=== PATIENT | female | born 1950 | race Hispanic/Latino ===

== ENCOUNTER → 2020-11-05 | Outpatient (CLI) | payer MEDICARE | END | disposition home or self-care (01) | LOC: SHCH 09:47 | PROVIDERS: ATTEND Internal Medicine Cardiovascular Disease | DX: I35.1 Nonrheumatic aortic (valve) insufficiency (principal); I35.0 Nonrheumatic aortic (valve) stenosis; I10 Essential (primary) hypertension; E78.5 Hyperlipidemia, unspecified | CPT/HCPCS: 93306; 93356 ==

== ENCOUNTER → 2020-11-08 | Outpatient (CLI) | payer MEDICARE ==
[~2020-11-08] VITALS: Ht 154.9 cm; Wt 70.8 kg
[~2020-11-08] MED LIST: REGADENOSON 0.4 MG/5 ML PF SYG IVP SCH
== END | disposition home or self-care (01) ==
LOC: SHCH 08:14 → EDUNIT# 08:30
PROVIDERS: ATTEND Internal Medicine Cardiovascular Disease
DX: I25.10 Atherosclerotic heart disease of native coronary artery without angina pectoris (principal); I25.5 Ischemic cardiomyopathy
CPT/HCPCS: 78452; 93017; 96374; A9500 ×2; J2785

== ENCOUNTER 2021-04-02 08:02 | Day surgery (SDC) | payer MEDICARE ==
[2021-04-01 09:42] LABS: BASOPHILS % (AUTO) 0.6 % (0.0-5.0); EOSINOPHILS % (AUTO) 1.8 % (0.0-8.0); LYMPHOCYTES % (AUTO) 34.9 % (21.0-51.0); MEAN CORPUSCULAR HEMOGLOBIN 30.2 pg (27.0-33.0); MEAN CORPUSCULAR HGB CONC 33.4 g/dL (32.0-36.0); MEAN CORPUSCULAR VOLUME 90.3 fL (79-99); MONOCYTES % (AUTO) 6.8 % (3.0-13.0); NEUTROPHILS % (AUTO) 55.8 % (40.0-77.0); PLATELET COUNT (AUTO) 275 K/uL (130-400); RED BLOOD CELL COUNT(AUTO) 4.87 MIL/uL (4.00-5.50); RED CELL DISTRIBUTION WIDTH 12.6 % (11.0-15.5); WHITE BLOOD COUNT (AUTO) 7.1 K/uL (4.8-10.8)
[2021-04-01 09:46] LABS: APPEARANCE,URINE CLEAR (CLEAR); BILIRUBIN,URINE NEGATIVE (NEGATIVE); COLOR,URINE YELLOW (YELLOW); GLUCOSE, URINE (UA) NEGATIVE (NEGATIVE); KETONES,URINE NEGATIVE (NEGATIVE); LEUKOCYTE ESTERASE ,URINE NEGATIVE (NEGATIVE); NITRATE,URINE NEGATIVE (NEGATIVE); OCCULT BLOOD,URINE NEGATIVE (NEGATIVE); PROTEIN,URINE NEGATIVE (NEGATIVE)
[2021-04-01 09:55] LABS: PROTHROMBIN TIME 10.9 SEC (9.6-11.6)
[2021-04-01 09:56] LABS: PARTIAL THROMBOPLASTIN TIME 29.8 SEC (26.3-35.5)
[2021-04-01 10:06] LABS: CREATININE 0.7 mg/dL (0.5-1.5)
[2021-04-01 14:21] VITALS: BP 112/60
[2021-04-02] VITALS (9 sets, daily range): BP systolic 130–170; BP diastolic 53–79
[~2021-04-02] VITALS: Ht 157.5 cm; Wt 62.2 kg
[~2021-04-02 08:02] MED LIST changes: +0.9% NACL 500ML IV.SOLN 500 ML IV SCH; +ASPI-1005 PO; +ATOR10TA69 PO; +DILT120C92 PO; +ESOM40CA PO; +FENO50CA4 PO; +LISI20TA24 PO; +PARO40TA72 PO; -REGADENOSON 0.4 MG/5 ML PF SYG IVP SCH; +TRAZ-185 PO
[2021-04-02] MEDS ORDERED: 0.9%NACL 1000ML 1,000 ML IV ONE (08:36)
[2021-04-02] MEDS ORDERED: IOHEXOL-350 50ML VIAL IV ONE (09:44)
[2021-04-02] MEDS ORDERED: IOHEXOL 350 MG/ML 100ML INFUS..BTL IV ONE (09:44)
[2021-04-02] MEDS ORDERED: NITROGLYCERIN 2 MG VIAL IV ONE (09:44)
[2021-04-02] MEDS ORDERED: LIDOCAINE HCL 400MG/20ML VIAL ONE (09:44)
[2021-04-02] MEDS ORDERED: MIDAZOLAM HCL 1 MG/ML 2ML VIAL ONE (10:10)
[2021-04-02] MEDS ORDERED: ONDANSETRON 4MG INJ ONE (13:46)
[2021-04-02] MEDS ORDERED: ONDANSETRON 4MG INJ IVP SCH (14:00)
== END 2021-04-02 14:15 | disposition home or self-care (01) ==
LOC: DAH 08:02
PROVIDERS: ATTEND Internal Medicine Cardiovascular Disease
DX: I25.119 Atherosclerotic heart disease of native coronary artery with unspecified angina pectoris (principal); I35.0 Nonrheumatic aortic (valve) stenosis; I10 Essential (primary) hypertension; E78.5 Hyperlipidemia, unspecified; F17.210 Nicotine dependence, cigarettes, uncomplicated; Z79.01 Long term (current) use of anticoagulants; Z79.82 Long term (current) use of aspirin; Z98.890 Other specified postprocedural states; Z79.899 Other long term (current) drug therapy; Z82.49 Family history of ischemic heart disease and other diseases of the circulatory system; Z90.89 Acquired absence of other organs; Z72.89 Other problems related to lifestyle
CPT/HCPCS: 36415; 71045; 80048; 81003; 85025; 85610; 85730; 93005; 93458; A4215; A4216; A4221; A4222; A4223 ×3; A4606; A4663; C1760; C1769; C1894; J1644; J2250; J2405; J3490 ×2; J7030; Q9965; Q9967 ×2; 96374; 99156; 99157

== ENCOUNTER → 2024-06-20 | Outpatient (CLI) | payer MEDICARE ==
[~2024-06-20] MED LIST changes: -0.9% NACL 500ML IV.SOLN 500 ML IV SCH; +ALBUHFA IH; +BENZ-39 PO; +CLAR-44 PO; +DILT120C78 PO; -DILT120C92 PO
--- NOTE | 2024-06-21 08:35 | HMCSR ---
APPROVED REPORT EXAM: Two-dimensional and M-mode echocardiogram with Doppler and color Doppler. INDICATION ICD: I35.0 Non-rheumatic aortic valve stenosis 2D Dimensions RVDd2.5 cmLVEF(%)47.9 (>50%)LVED Vol(simp.)130.0 mL IVSd1.4 (0.7-1.1cm)FS(%)24 %LVES Vol(simp.)74.0 mL LVDd4.0 (3.8-5.6cm)Ao Root(2D)2.6 (2.0-3.7cm)LVEF(%, simp.)43 % PWd1.4 (0.7-1.1cm)LVOT diam2.0 (1.8-2.4cm)LA ESV INDEX (BP)36.71 mL/m2 LVDs3.1 (2.5-4.0cm)IVC diam1.6 cm Aortic Valve AoV Vmax5.5 m/Katelyn Peak GR123.0 mmHgLVOT Vmax1.2 m/s AoV VTI1.2 mAo Mean GR81.9 mmHgLVOT VTI0.26 m FLETCHER (VMAX)0.7 cm2Al P1/2T359 msAVA (VTI) 0.7 cm2 Mitral Valve MV E Afck889.0 cm/sDECEL Cwyb805 msMV Peak GR10 mmHg MV A Kvsc640.5 cm/sP 1/2 T76 msMV Mean GR5 mmHg E/A ratio0.8MVA (PHT)2.9 cm2MVA (VTI)2.3 cm2 MR Max PG179 mmHg TDI E/E' Roqxku07.3E/E' Omyaegz62.6 Pulmonary Valve PV Vmax1.2 m/sPV VTI0.22 mPV Mean GR4 mmHg PV Peak GR5.4 mmHg Tricuspid Valve TR Vmax2.5 m/sRAP (EST) 3 sgZaRGEW24.6 mmHg TR Peak GR24.6 mmHg Left Ventricle Left ventricular cavity size is normal. There is normal LV segmental wall motion. There is moderate c oncentric left ventricular hypertrophy. LVEF is 50-55%. Grade 2 diastolic dysfunction. Right Ventricle The right ventricle is normal size. Right ventricular systolic function is moderately reduced. Atria The left atrium is mildly dilated. The right atrium size is normal. Aortic Valve Aortic valve is trileaflet. The aortic valve is calcified and displays decreased opening. Moderate ao rtic regurgitation. AV Dimensionless Index is 0.22 There is severe valvular aortic stenosis.Calculate d aortic valve area is 0.7 cm2 with maximum pressure gradient of 123 mmHg and mean pressure gradient of 82 mmHg. Mitral Valve The posterior mitral leaflet is mildly calcified. Mitral annular calcification is mild to moderate. M itral regurgitation is moderate. Mild mitral stenosis.Calculated mitral valve area is 2.3 cm2 with ma ximum pressure gradient of 9.8 mmHg and mean pressure gradient of 4.9 mmHg. Tricuspid Valve The tricuspid valve leaflets appear normal. There is trace tricuspid regurgitation. Pulmonic Valve Pulmonic valve is not well visualized. There is trace pulmonic valvular regurgitation. Great Vessels The aortic root is normal in size. The IVC is normal in size and collapses >50% with inspiration. Pericardium No pericardial effusion. Conclusion There is moderate concentric left ventricular hypertrophy. LVEF is 50-55%. Grade 2 diastolic dysfunction. Aortic valve is trileaflet. The aortic valve is calcified and displays decreased opening. Moderate aortic regurgitation. There is severe valvular aortic stenosis.Calculated aortic valve area is 0.7 cm2 with maximum pressur e gradient of 123 mmHg and mean pressure gradient of 82 mmHg. Mitral regurgitation is moderate. Mild mitral stenosis.Calculated mitral valve area is 2.3 cm2 with maximum pressure gradient of 9.8 mm Hg and mean pressure gradient of 4.9 mmHg.
== END | disposition home or self-care (01) ==
LOC: SHCH 13:20
PROVIDERS: ATTEND Internal Medicine Cardiovascular Disease
DX: I08.0 Rheumatic disorders of both mitral and aortic valves (principal); I70.8 Atherosclerosis of other arteries; I50.20 Unspecified systolic (congestive) heart failure
CPT/HCPCS: 93306

== ENCOUNTER 2024-07-24 05:55 | Day surgery (SDC) | payer MEDICARE ==
--- NOTE | 2024-07-20 10:15 | EKG ---
[facility] Test Date: 2024-07-20 Test Time: 10:55:57 Pat Name: REYNOLD ALBRECHT Department: [facility] Room: Gender: F Tenter Frame Back Tender: [id number] : 1950 Requested By: KIERAN BUCK Order Number: [id number] Reading MD: Summer Garibay Measurements Intervals [place] Rate: 84 P: 68 AL: 157 QRS: 3 QRSD: 90 T: 110 QT: 395 QTc: 467 Interpretive Statements Sinus rhythm Biatrial enlargement LVH with secondary repolarization abnormality Compared to ECG 04/01/2021 09:23:15 Left ventricular hypertrophy now present Early repolarization now present Electronically Signed On 07-20-2024 17:28:05 CHROMOSOMAL DISORDERS COUNSELOR by Summer Garibay Please click the below link to view image of tracing.
[2024-07-20 10:19] LABS: APPEARANCE,URINE CLOUDY (CLEAR); BILIRUBIN,URINE NEGATIVE (NEGATIVE); COLOR,URINE YELLOW (YELLOW); GLUCOSE, URINE (UA) NEGATIVE (NEGATIVE); KETONES,URINE NEGATIVE (NEGATIVE); LEUKOCYTE ESTERASE ,URINE NEGATIVE Leu/uL (NEGATIVE); NITRATE,URINE NEGATIVE (NEGATIVE); PH,URINE 5.5 (5.0-8.0); PROTEIN,URINE NEGATIVE (NEGATIVE); UROBILINOGEN,URINE 0.2 mg/dL (0.2-1.0)
[2024-07-20 10:20] LABS: BASOPHILS # (AUTO) 0.05 K/uL (0.00-0.20); BASOPHILS % (AUTO) 0.5 % (0.0-5.0); EOSINOPHILS # (AUTO) 0.22 K/uL (0.00-0.70); EOSINOPHILS % (AUTO) 2.1 % (0.0-8.0); HEMATOCRIT 44.9 % (36-48); IMMATURE GRANULOCYTE ABSOLUTE 0.06 K/uL (0-1); LYMPHOCYTES # (AUTO) 3.2 K/uL (1.0-4.8); LYMPHOCYTES % (AUTO) 29.9 % (21.0-51.0); MEAN CORPUSCULAR HEMOGLOBIN 28.8 pg (27.0-33.0); MEAN CORPUSCULAR HGB CONC 32.3 g/dL (32.0-36.0); MEAN CORPUSCULAR VOLUME 89.1 fL (79-99); MONOCYTES # (AUTO) 0.6 K/uL (0.1-1.0); MONOCYTES % (AUTO) 5.3 % (3.0-13.0); NEUTROPHILS # (AUTO) 6.5 K/uL (1.8-7.7); NEUTROPHILS % (AUTO) 61.6 % (40.0-77.0); PLATELET COUNT (AUTO) 279 K/uL (130-400); RED BLOOD CELL COUNT(AUTO) 5.04 MIL/uL (4.00-5.50); RED CELL DISTRIBUTION WIDTH 13.8 % (11.0-15.5); WHITE BLOOD COUNT (AUTO) 10.6 K/uL (4.8-10.8)
[2024-07-20 10:20] LABS: ADD UA MICROSCOPIC YES
[2024-07-20 10:27] VITALS: BP 136/67; PULSE 90; RESP 18; TEMP 97
[2024-07-20 10:27] LABS: INR <= 0.93 (0.85-1.15); PROTHROMBIN TIME 10.2 SEC (9.6-11.6)
[2024-07-20 10:28] LABS: PARTIAL THROMBOPLASTIN TIME 28.4 SEC (26.3-35.5)
[2024-07-20 10:29] LABS: CREATININE 0.7 mg/dL (0.5-1.0); POTASSIUM 3.9 mmol/L (3.5-5.1)
[2024-07-20 10:41] LABS: BACTERIA,URINE Few /HPF (None Seen); CALCIUM OXALATE CRYSTALS,UR Few /LPF (None Seen); RBC,URINE 0-1 /HPF (0-1)
[2024-07-20 11:06] LABS: B-TYPE NATRIURETIC PEPTIDE 614 pg/mL (0-100)
--- NOTE | 2024-07-20 11:20 | HMCIMG ---
CHEST 1VW HISTORY: Preop COMPARISON: 08/05/2023 FINDINGS: A frontal projection of the chest was obtained. No acute pulmonary infiltrates is seen. The heart is normal in size. Degenerative changes are seen. Aortic calcifications are seen. IMPRESSION: 1. No acute pulmonary infiltrate is seen.
[~2024-07-24] VITALS: Ht 154.9 cm; Wt 71.6 kg
[2024-07-24] VITALS (17 sets, daily range): BP systolic 98–170; BP diastolic 46–89; PULSE 80–94; RESP 12–22; TEMP 96.6–97
[~2024-07-24 05:55] MED LIST changes: -ALBUHFA IH; -ASPI-1005 PO; +ASPI-1443 PO; -ATOR10TA69 PO; +ATOR20TA65 PO; -BENZ-39 PO; -CLAR-44 PO; -DILT120C78 PO; -ESOM40CA PO; +FAMO20TA8 PO; +FENO160T16 PO; -FENO50CA4 PO
[2024-07-24] MEDS ORDERED: LIDOCAINE HCL 1% 20 ML VIAL ONE (07:18)
[2024-07-24] MEDS ORDERED: IOHEXOL 350 MG/ML 100ML INFUS..BTL IV ONE (07:18)
[2024-07-24] MEDS ORDERED: HEParin-NS 1,000 UNIT/500 ML 1,000 ML IV ONE (07:19)
[2024-07-24] MEDS ORDERED: HEParin 10,000 UNIT/10ML (1,000 UNIT/ML) VIAL ONE ×2 (07:19→08:11)
[2024-07-24] MEDS ORDERED: MIDAZOLAM HCL 1 MG/ML 2ML VIAL ONE (07:33)
[2024-07-24] MEDS ORDERED: FENTanyl CITRate PF 50 MCG/1 ML 2ML VIAL ONE (07:33)
[2024-07-24] MEDS ORDERED: LIDOCAINE HCL 400MG/20ML VIAL ONE (07:46)
[2024-07-24] MEDS ORDERED: NITROGLYCERIN 50MG VIAL ONE (08:00)
[2024-07-24] MEDS ORDERED: ATROPINE 1MG SYG IVP ONE (08:14)
[2024-07-24] MEDS ORDERED: furoSEMIDE 20MG VIAL ONE (08:32)
[2024-07-24] MEDS ORDERED: cloPIDOgrel 300MG TAB ONE (08:39)
[2024-07-24] MEDS ORDERED: hydrALAZine 20MG/ML VIAL ONE (09:07)
--- NOTE | 2024-07-24 09:15 | PRN ---
Cath Procedure Report CATH PROCEDURE REPORT CARDIAC CATHETERIZATION REPORT Date of Service: Jul 24, 2024 Right and left heart catheterization to assess coronary artery disease and aortic stenosis. After informed consent the patient was prepped and draped in the usual fashion. She received 0.5 mg of Versed for conscious sedation. She received 20 cc of 2% xylocaine in the right inguinal area. A seven Afghan sheath was introduced into the right femoral vein using modified Seldinger technique. A seven Afghan sheath was introduced into the right femoral artery using modified Seldinger technique. A [place]rick catheter was advanced under fluoroscopic guidance. PA and wedge pressures were measured. Cardiac output measured. A six Afghan pigtail catheter was then advanced over guidewire to the aortic root. The J- wire was exchanged for a straight wire was was used across the aortic valve. Wire was removed and hemodynamics measured. We had simultaneous wedge and EDP pressure. Simultaneous femoral sheath pressure and pigtail catheter in the ventricle. Left ventricular end-diastolic pressure was 40 mm Hg and no ventriculogram was performed. The patient was short of breath or in his the seizure and received 20 mg of Lasix and an additional 0.5 of Versed and 25 of fentanyl. Breathing improved after that. A pullback with continuous hemodynamic monitoring was performed and catheter was removed. A Lion four right six Afghan diagnostic catheter was advanced over guidewire to the aortic root. Wire was removed and catheter engaged into the [place] right coronary artery. The right coronary artery was visualized multiple planes. A Lion four left six Afghan diagnostic catheter was advanced over guidewire to the aortic root. Wire was removed and catheter engaged into the left main coronary artery. The left coronary system was visualized in multiple planes the catheter was removed. Findings: The patient has severe aortic stenosis with a 91 mm peak gradient and mean gradient of 55 mm Hg. Valve area of 0.5 cm2. The right coronary artery is a right-dominant vessel. There was a 90% ostial stenosis in the right coronary artery the remainder of the vessel is free of obstruction gives rise to normal PDA and posterolateral branches. The left main coronary artery has a 30% proximal stenosis unchanged from previous catheterization in 2020. In addition there was a 50% stenosis in the 1st septal differential repairer. It was recommended to undergo stenting of the ostial RCA with plans for a TAVR valve in six weeks. After discussion with the patient she received 7000 units of heparin. She had taken aspirin earlier this morning. Lion four right six Afghan guiding catheter with side hole was then advanced over guidewire to the aortic root. Wire was removed and catheter engaged into the [place] right coronary artery. A run-through wire was then passed across the area of stenosis into the posterolateral branch. Initial attempts to cross with the stent were unsuccessful. The stent was removed and a 2.5 x 10 mm balloon advanced to the area of ostial stenosis. This was dilated to 14 atmospheres. Stenosis was reduced from 90% to 20-30%. The balloon was removed and a 3.5 by 12 mm drug- eluting stent was then placed across the area of stenosis in the ostium of the right coronary artery. This was dilated to eight atmospheres. Stenosis was reduced to 0% with normal SHAR flow. There was no dissection. The patient received 600 mg of clopidogrel at the end of the procedure. ACT during the procedure was greater than 400 ACT at the end of the procedure was 360. The patient will be transferred to the daycare for line management. Plans are for tentative discharge home later today. We will recommend adding furosemide 20 mg daily to her regimen. Summary: Successful drug-eluting stent to the ostial RCA. Severe aortic stenosis with plans for a TAVR valve in six weeks. Report dictated by KIERAN Mehta MD, MD Jul 24, 2024 09:15
[2024-07-24] MEDS ORDERED: ondanSETRON 4MG INJ IVP SCH (09:30)
[2024-07-24] MEDS ORDERED: TEMAZepam 30 MG CAP PO PRN (09:30)
[2024-07-24] MEDS ORDERED: NITROGLYCERIN 50MG/D5W 250ML 1 BOT IV PRN (09:30)
[2024-07-24] MEDS ORDERED: acetaMINOPHEN WITH coDEINE 1 TAB TAB PO PRN ×2 (09:30)
[2024-07-24] MEDS ORDERED: morPHINE 4 MG SYG IVP SCH (09:30)
[2024-07-24] MEDS ORDERED: ondanSETRON 4MG INJ IVP PRN (09:30)
--- NOTE | 2024-07-24 12:27 | NUR ---
7fr arterial sheath and 7fr venous sheath removed at 1203. dstat placed and direct pressure held until 1222. Reinforced pt education about keeping leg straight and not to lift head of bed >15 degrees.
[2024-07-24] MEDS ORDERED: FURO20TA4 PO (15:17)
[2024-07-24] MEDS ORDERED: CLOP75TA32 PO (15:17)
[2024-07-25] MEDS ORDERED: ASPIRIN 81MG CHEW TAB PO SCH (09:00)
[2024-07-25] MEDS ORDERED: cloPIDOgrel 75MG TAB PO SCH (09:00)
[2024-07-25] MEDS ORDERED: PANTOPrazole 40 MG TAB DR PO SCH (09:00)
== END 2024-07-24 16:14 ==
LOC: DAH 05:55 → EDSTATUS 09:00 → DAH 16:14
PROVIDERS: ATTEND Internal Medicine Cardiovascular Disease
DX: I35.0 Nonrheumatic aortic (valve) stenosis (principal); I10 Essential (primary) hypertension; E78.5 Hyperlipidemia, unspecified; E66.9 Obesity, unspecified; I25.118 Atherosclerotic heart disease of native coronary artery with other forms of angina pectoris; Z95.2 Presence of prosthetic heart valve; Z68.29 Body mass index [BMI] 29.0-29.9, adult; Z87.891 Personal history of nicotine dependence; Z82.49 Family history of ischemic heart disease and other diseases of the circulatory system; Z79.899 Other long term (current) drug therapy; Z79.82 Long term (current) use of aspirin; Z79.01 Long term (current) use of anticoagulants
CPT/HCPCS: 80048; 83880; 85025; 85610; 85730 ×2; 81001; 36415 ×2; 71045; 93005; 93460; 85347 ×2; C9600; C1769 ×2; C1887; C1894 ×3; C1713; C1874; Q9965 ×2; J3010; J3490 ×2; J0360; J1644 ×3; J2250; J1940; Q9967; A4215; A6402; A4335; A4222; A4221; A4663; A4216; A4606; A4520; A4223 ×3; A4554; 99156; 99157; J0461

== ENCOUNTER → 2024-08-25 | Outpatient (CLI) | payer MEDICARE ==
[~2024-08-25] MED LIST changes: +CLOP75TA32 PO; +FURO20TA4 PO; +IOHEXOL 350 MG/ML 100ML INFUS..BTL IV ONE
--- NOTE | 2024-08-26 00:36 | HMCIMG ---
CT ANGIO TAVR PROTOCOL HISTORY: Presence of prosthetic valve COMPARISON: None TECHNIQUE: Multiple sequential axial images of the chest were obtained from the thoracic inlet through upper abdomen. Patient was given 100 cc of Omnipaque through intravenous route. Please see CT angiogram report. FINDINGS: There is no evidence of pulmonary nodule or parenchymal disease. No pleural effusion or pericardial effusion is seen. There is no evidence of pneumothorax. There are normal size mediastinal and hilar lymph nodes. The heart is not enlarged. Degenerative changes of the thoracolumbar spine are present. There is no evidence of adrenal nodule. IMPRESSION: 1. No evidence of pulmonary nodule or effusion is seen. CT ANGIO TAVR PROTOCOL HISTORY: No additional history given. COMPARISON: None TECHNIQUE: Multiple sequential axial images of the abdomen and pelvis were obtained from the dome of the diaphragm through symphysis pubis. Patient was not given contrast through intravenous route. Oral contrast was not given. Please see CT angiogram report FINDINGS: The liver, spleen, adrenal glands and pancreas are unremarkable. There is no evidence of hydronephrosis bilaterally. No evidence of renal stone is seen. Fecal material is seen in the colon. There is mild diverticulosis. There are normal size retroperitoneal and mesenteric lymph nodes. No ascites is seen. Atherosclerotic changes are present. No evidence of abdominal aortic aneurysm is seen. The celiac artery, superior mesenteric artery and iliac arteries are grossly patent with vascular calcifications. Pelvic sidewalls are symmetric bilaterally. Bladder is well distended without wall thickening. IMPRESSION: 1. Mild diverticulosis. No ascites is seen. CT was performed with one or more following dose reduction techniques: automated exposure control, adjustment of the mA and kv according to patient's size, or use of a iterative reconstruction technique.
--- NOTE | 2024-08-28 08:39 | CARDIOLOGY ---
RAD REPORT: CORNARY CT ANGIO RADIOLOGY REPORT: CORONARY CT ANGIOGRAPHY DATE: Aug 28, 2024 QUALITY: Excellent CLINICAL HISTORY AND INDICATION: [ TAVR ] TECHNIQUE: After obtaining a preliminary beam warper image, contrast imaging performed on an [employer] [id number] scanner. A dedicated, limited window, coronary imaging protocol was used, with single breath-hold, retrospective ECG gating, and automated arrhythmia rejection. 100 cc of low osmolar contrast agent: Omnipaque 350 was delivered via a 18-gauge IV catheter in the right antecubital fossa, using a power injector and followed by 60 cc of normal saline bolus as a chaser. Collimated images were reformatted at 0.5 mm intervals, and sent to an offline independent workstation for interpretation, using 3D anatomic reconstructions: Curved multiplanar reconstructions, maximum intensity projections, and multiplanar imaging. No metoprolol was administered prior to scanning due to low baseline heart rate. No SL nitroglycerin was given. CORONARY ARTERY DESCRIPTIONS: The coronary arteries arise in normal position. Left main coronary artery: Normal caliber vessel that bifurcates into the LAD and LCx. 30% ostial left main stenosis. Left anterior descending coronary artery: Normal caliber vessel and gives rise to diagonal and septal branches. No stenosis. Left circumflex coronary artery: Normal caliber, nondominant and gives rise to a large OM branch. No stenosis. Right coronary artery: Large, dominant vessel giving rise to the PL and PDA branches. Ostial RCA drug eluting stent. Summer Garibay MD Cardi[facility] Disease [facility] SUMMER GARIBAY MD Aug 28, 2024 08:39
== END | disposition home or self-care (01) ==
LOC: RAH 09:44
PROVIDERS: ATTEND Internal Medicine Cardiovascular Disease
DX: K57.30 Diverticulosis of large intestine without perforation or abscess without bleeding (principal); M47.815 Spondylosis without myelopathy or radiculopathy, thoracolumbar region; I70.90 Unspecified atherosclerosis; Z95.2 Presence of prosthetic heart valve
CPT/HCPCS: 74174; 75574; Q9967